=== PATIENT | male | born 1965 | race Caucasian/White ===

== ENCOUNTER 2020-04-20 11:56 | Emergency (ER) | payer OTHER ==
[~2020-04-20] VITALS: Ht 162.6 cm; Wt 64.0 kg
[2020-04-20] MEDS ORDERED: IV NORMAL SALINE 1000ML BAG 1,000 ML IV ONE (12:15)
--- NOTE | 2020-04-20 12:22 | PHYS DOC ---
Past Medical History Past Medical History: Diabetes-Type II, Hypertension General Adult EDM: Chief Complaint: NAUSEA/VOMITING/DIARRHA HPI: HPI: Patient is a 54 year old male with a history of diabetes type 2, hypertension, who presents today to be evaluated for nausea vomiting and diarrhea as well as generalized moderate intermittent cramping abdominal pain, symptoms began this morning while he was at a flea market. He states he had had some food before his symptoms began and believes he has food poisoning. Patient denies any hematemesis or melena. EMS reports his blood glucose was 32 when they found him. He was given glucose tablets. Glucose in 300s on arrival to the ED, EMS reports patient was found at [place] parking lot in his van. Review of Systems: Review of Systems: Constitutional: Denies fever or chills. [] Eyes: Denies change in visual acuity. [] HENT: Denies nasal congestion or sore throat. [] Respiratory: Denies cough or shortness of breath. [] Cardiovascular: Denies chest pain or edema. [] GI: Reports abdominal pain, nausea vomiting and diarrhea, denies bloody stools : Denies dysuria. [] Musculoskeletal: Denies back pain or joint pain. [] Integument: Denies rash. [] Neurologic: Denies headache, focal weakness or sensory changes. [] Endocrine: Reports hypoglycemia by EMS Lymphatic: Denies swollen glands. [] Psychiatric: Denies depression or anxiety. [] Heart Score: Risk Factors: Risk Factors: DM, Current or recent (<one month) smoker, HTN, HLP, family history of CAD, obesity. Risk Scores: Score 0 - 3: 2.5% MACE over next 6 weeks - Discharge Home Score 4 - 6: 20.3% MACE over next 6 weeks - Admit for Clinical Observation Score 7 - 10: 72.7% MACE over next 6 weeks - Early Invasive Strategies Current Medications: Current Medications Medications (Trade) Dose Ordered Sig/[facility] Start Time Stop Time Status Last Admin Dose Admin Famotidine (Pepcid Vial) 20 mg 1X ONCE 04/20/20 12:15 04/20/20 12:16 UNV Morphine Sulfate (Morphine Sulfate) 5 mg 1X ONCE 04/20/20 12:15 04/20/20 12:16 UNV Ondansetron HCl (Zofran) 4 mg 1X ONCE 04/20/20 12:15 8/2/20 12:16 UNV Sodium Chloride 1,000 ml @ 1,000 mls/hr 1X ONCE 04/20/20 12:15 04/20/20 13:14 UNV Physical Exam: PE: Constitutional: Well developed, well nourished, no acute distress, non-toxic appearance. [] HENT: Normocephalic, atraumatic, bilateral external ears normal, oropharynx moist, no oral exudates, nose normal. [] Eyes: PERRLA, EOMI, conjunctiva normal, no discharge. [] Neck: Normal range of motion, no tenderness, supple, no stridor. [] Cardiovascular:Heart rate regular rhythm, no murmur [] Lungs & Thorax: Bilateral breath sounds clear to auscultation [] Abdomen: Bowel sounds normal, soft, no tenderness, no masses, no pulsatile masses. [] Skin: Warm, dry, no erythema, no rash. [] Back: No tenderness, no CVA tenderness. [] Extremities: No tenderness, no cyanosis, no clubbing, ROM intact, no edema. [] Neurologic: Alert and oriented X 3, normal motor function, normal sensory function, no focal deficits noted. [] Psychologic: Affect normal, judgement normal, mood normal. [] Current Patient Data: Labs: Laboratory Tests Test 04/20/20 12:04 Glucose (Fingerstick) 386 mg/dL (70-99) H EKG: EKG: [] Radiology/Procedures: Radiology/Procedures: []PROCEDURE: CT ABD PELV W/ IV CONTRST ONLY CT abdomen and pelvis with contrast 04/20/2020. Reason for exam: Nausea, vomiting and diarrhea. CT images were obtained through the abdomen and pelvis using an infusion of 75 mL Omnipaque 300. No oral contrast was given. Exposure: One or more of the following individualized dose reduction techniques were utilized for this examination: 1. Automated exposure control 2. Adjustment of the mA and/or kV according to patient size 3. Use of iterative reconstruction technique. FINDINGS: The lung bases are clear. The liver and spleen are homogeneous in density and normal in configuration. Both kidneys enhance with contrast. No mass or obstruction is seen. The adrenal glands are not enlarged. There is a region in the pancreatic tail showing peripheral calcification. This measures about 1.4 cm. This is separate from the main splenic artery. No other pancreatic abnormality or inflammation is seen. There is no apparent retroperitoneal or mesenteric adenopathy. No abdominal soft tissue mass is seen. Evaluation of the GI tract is limited somewhat by lack of oral contrast and lack of distention. There could be mild wall thickening of the colon diffusely. There is a segment of bowel in the right abdomen showing internal calcific density. This appears to be blind ended arising from small bowel, and may indicate a Meckel's diverticulum. There is no appreciable adjacent inflammation. A normal appendix is seen arising from the cecum. Images through the pelvis show no abnormality of the distal ureters or bladder. The bladder was distended at the time of the exam. No pelvic or inguinal adenopathy is seen. There is no separate pelvic mass or other inflammatory process. IMPRESSION: There may be mild colitis. Evaluation is limited by lack of bowel distention and lack of oral contrast. There are findings suggesting possible Meckel's diverticulum in the right abdomen, but there is no evidence of obstruction or active inflammation related to this. There is a ring-shaped calcification in the pancreatic tail. Arterial branch aneurysm would be a consideration. Low-grade neoplasm or chronic pseudocyst are also possibilities. Follow-up CT in 6-12 months may be useful. Electronically signed by: Adilene Irizarry Jr., MD (04/20/2020 1:35 PM) [facility] DICTATED and SIGNED BY: ADILENE IRIZARRY Jr, MD DATE: 04/20/20 1097 Course & Med Decision Making: Course & Med Decision Making Pertinent Labs and Imaging studies reviewed. (See chart for details) This is a 54-year-old male patient who presents to the ED today to be evaluated for nausea vomiting and diarrhea that began today after eating some food at a flea market. Patient arrives in the ED with blood glucose in the low 386. His blood glucose was 32 when EMS got him and had been given glucose tablets. CBC with a normal WBC, CMP with no acute findings. CT of the abdomen and pelvic was noted for colitis. Other CT results were discussed with patient as noted on the CAT scan. Patient was hydrated in the ED. Discharged on Cipro Flagyl dicyclomine and Zofran. Return precautions provided. Dragjohanny Disclaimer: Marian Disclaimer: This electronic medical record was generated, in whole or in part, using a voice recognition dictation system. Departure Departure Impression: Primary Impression: Colitis Disposition: 01 HOME, SELF-CARE Condition: STABLE Referrals: JOIE TRIVEDI MD follow up in one week Patient Instructions: Colitis Additional Instructions: You have colitis. Please complete the prescribed antibiotics. Please push fluids and maintain good hand hygiene. Please follow up with your doctor next week or the provided doctor Scripts Dicyclomine Hcl (DICYCLOMINE HCL) 20 Mg Tablet 1 TAB PO TID, #30 TAB 1 Refill Prov: JUANITA CORDOVA APRN 04/20/20 Ondansetron Hcl (ZOFRAN) 4 Mg Tablet 1 TAB PO Q6HRS, #20 TAB Prov: JUANITA CORDOVA APRN 8/2/20 Metronidazole (FLAGYL) 500 Mg Tablet 500 MG PO TID, #30 TAB Prov: JUANITA CORDOVA APRN 8/20 Ciprofloxacin Hcl (CIPRO) 500 Mg Tablet 1 TAB PO BID for 10 Days, #20 TAB 0 Refills Prov: JUANITA CORDOVA APRN 04/20/20 Justicifation of Admission Dx: Justifications for Admission: Justification of Admission Dx: N/A JUANITA CORDOVA APRN Apr 20, 2020 12:22
[2020-04-20 12:39] LABS: BASO # 0.1 x10^3/uL (0.0-0.2); BASO % 1 % (0-3); EOS # 0.1 x10^3/uL (0.0-0.7); EOS % 1 % (0-3); HEMATOCRIT 43.2 % (39.0-53.0); HEMOGLOBIN 14.3 g/dL (13.0-17.5); LYMPH # 1.2 x10^3/uL (1.0-4.8); LYMPH % 12 % (24-48); MEAN CORPUSCULAR HEMOGLOBIN 29 pg (25-35); MEAN CORPUSCULAR HGB CONC 33 g/dL (31-37); MEAN CORPUSCULAR VOLUME 88 fL (79-100); MONO # 0.3 x10^3/uL (0.0-1.1); MONO % 3 % (0-9); NEUT # 8.7 x10^3/uL (1.8-7.7); NEUT % 84 % (31-73); PLATELET COUNT 181 x10^3/uL (140-400); RED BLOOD COUNT 4.94 x10^6/uL (4.30-5.70); RED CELL DISTRIBUTION WIDTH 13.6 % (11.5-14.5); WHITE BLOOD COUNT 10.3 x10^3/uL (4.0-11.0)
[2020-04-20] MEDS ORDERED: MORPHINE SULFATE 10 MG/ML VIAL. IV ONE (12:45)
[2020-04-20] MEDS ORDERED: FAMOTIDINE 20 MG/2 ML VIAL IVP ONE (12:45)
[2020-04-20] MEDS ORDERED: ONDANSETRON PF 4 MG/2 ML VIAL. IVP ONE (12:45)
[2020-04-20 12:50] LABS: CALCIUM 9.5 mg/dL (8.5-10.1); CREATININE 1.1 mg/dL (0.7-1.3); GFR 69.2; POTASSIUM 3.8 mmol/L (3.5-5.1)
[2020-04-20 12:56] LABS: ALBUMIN 4.3 g/dL (3.4-5.0); MAGNESIUM 2.1 mg/dL (1.8-2.4); TOTAL BILIRUBIN 0.9 mg/dL (0.2-1.0); TOTAL PROTEIN 8.4 g/dL (6.4-8.2)
[2020-04-20] MEDS ORDERED: IOHEXOL 300 MG/ML 100ML VIAL. IV ONE (13:30)
[2020-04-20] MEDS ORDERED: CONTRAST GIVEN. MC PRN (13:30)
--- NOTE | 2020-04-20 13:38 | RAD ---
CT abdomen and pelvis with contrast 04/20/2020. Reason for exam: Nausea, vomiting and diarrhea. CT images were obtained through the abdomen and pelvis using an infusion of 75 mL Omnipaque 300. No oral contrast was given. Exposure: One or more of the following individualized dose reduction techniques were utilized for this examination: 1. Automated exposure control 2. Adjustment of the mA and/or kV according to patient size 3. Use of iterative reconstruction technique. FINDINGS: The lung bases are clear. The liver and spleen are homogeneous in density and normal in configuration. Both kidneys enhance with contrast. No mass or obstruction is seen. The adrenal glands are not enlarged. There is a region in the pancreatic tail showing peripheral calcification. This measures about 1.4 cm. This is separate from the main splenic artery. No other pancreatic abnormality or inflammation is seen. There is no apparent retroperitoneal or mesenteric adenopathy. No abdominal soft tissue mass is seen. Evaluation of the GI tract is limited somewhat by lack of oral contrast and lack of distention. There could be mild wall thickening of the colon diffusely. There is a segment of bowel in the right abdomen showing internal calcific density. This appears to be blind ended arising from small bowel, and may indicate a Meckel's diverticulum. There is no appreciable adjacent inflammation. A normal appendix is seen arising from the cecum. Images through the pelvis show no abnormality of the distal ureters or bladder. The bladder was distended at the time of the exam. No pelvic or inguinal adenopathy is seen. There is no separate pelvic mass or other inflammatory process. IMPRESSION: There may be mild colitis. Evaluation is limited by lack of bowel distention and lack of oral contrast. There are findings suggesting possible Meckel's diverticulum in the right abdomen, but there is no evidence of obstruction or active inflammation related to this. There is a ring-shaped calcification in the pancreatic tail. Arterial branch aneurysm would be a consideration. Low-grade neoplasm or chronic pseudocyst are also possibilities. Follow-up CT in 6-12 months may be useful. Electronically signed by: Amando Sewell Jr., MD (04/20/2020 1:35 PM) [facility]
[2020-04-20] MEDS ORDERED: CIPROFLOXACIN 400MG PREMIX 200 ML IV ONE (15:30)
[2020-04-20 15:32] VITALS: BP 143/89
[2020-04-20] MEDS ORDERED: METR500T PO (15:55)
[2020-04-20] MEDS ORDERED: ONDA4TAB7 PO (15:55)
[2020-04-20] MEDS ORDERED: CIPR500T94 PO (15:55)
[2020-04-20] MEDS ORDERED: DICY20TA3 PO (15:57)
== END 2020-04-20 16:09 | disposition home or self-care (01) ==
LOC: ER 11:56
DX: K52.9 Noninfective gastroenteritis and colitis, unspecified (principal); R11.2 Nausea with vomiting, unspecified; R19.7 Diarrhea, unspecified; E11.9 Type 2 diabetes mellitus without complications; I10 Essential (primary) hypertension
CPT/HCPCS: 36415; 74177; 80053; 82962; 83690; 83735; 85025; 87493; 96361; 96374; 96375; 99285; G0480; J2270; J2405; J3490; J7030; Q9967

== ENCOUNTER 2021-10-07 15:16 | Emergency (ER) | payer OTHER ==
[~2021-10-07] VITALS: Ht 162.6 cm; Wt 61.8 kg
[~2021-10-07 15:16] MED LIST: ASPI325T11 PO; ATOR40TA59 PO; CIPR500T94 PO; DICY20TA PO; GLIP2.5T4 PO; METF500T16 PO; METR500T PO; ONDA4TAB7 PO
[2021-10-07] MEDS ORDERED: IV NORMAL SALINE 1000ML BAG 1,000 ML IV SCH (19:30)
[2021-10-07] MEDS ORDERED: VANCOMYCIN PER PHARMACY MC ONE (19:30)
[2021-10-07] MEDS ORDERED: PIPERACILLIN/TAZOBACTAM 4.5 GM in IV NORMAL SALINE 100ML 100 ML IV ONE (19:30)
[2021-10-07] MEDS ORDERED: VANCOMYCIN 1.5 GM in IV NORMAL SALINE 500ML BAG 500 ML IV ONE (19:30)
[2021-10-07 19:31] LABS: BASO % 1 % (0-3); EOS # 0.1 x10^3/uL (0.0-0.7); EOS % 2 % (0-3); HEMATOCRIT 25.2 % (39.0-53.0); HEMOGLOBIN 8.1 g/dL (13.0-17.5); LYMPH # 2.4 x10^3/uL (1.0-4.8); LYMPH % 33 % (24-48); MEAN CORPUSCULAR HEMOGLOBIN 27 pg (25-35); MEAN CORPUSCULAR HGB CONC 32 g/dL (31-37); MEAN CORPUSCULAR VOLUME 85 fL (79-100); MONO # 0.6 x10^3/uL (0.0-1.1); MONO % 8 % (0-9); NEUT % 56 % (31-73); PLATELET COUNT 257 x10^3/uL (140-400); RED BLOOD COUNT 2.97 x10^6/uL (4.30-5.70); RED CELL DISTRIBUTION WIDTH 15.1 % (11.5-14.5); WHITE BLOOD COUNT 7.2 x10^3/uL (4.0-11.0)
[2021-10-07 19:41] LABS: CALCIUM 8.4 mg/dL (8.5-10.1); CREATININE 0.9 mg/dL (0.7-1.3); POTASSIUM 4.1 mmol/L (3.5-5.1)
[2021-10-07 19:47] LABS: ALBUMIN 2.6 g/dL (3.4-5.0); ALBUMIN/GLOBULIN RATIO 0.5 (1.0-1.7); TOTAL BILIRUBIN 0.2 mg/dL (0.2-1.0); TOTAL PROTEIN 8.3 g/dL (6.4-8.2)
--- NOTE | 2021-10-07 20:49 | RAD ---
EXAMINATION: Right ankle and right foot radiographs. VIEWS: 3 views of the right ankle and 3 views of the right foot. COMPARISON: None. INDICATION:55 years, Male, cellulitis. FINDINGS: No acute fracture, dislocation or subluxation. Ankle mortise and talar dome are intact. No bone erosi on or periosteal reaction. Diffuse soft tissue swelling about the ankle and foot. Moderate amount of ankle joint effusion. IMPRESSION: Diffuse soft tissue swelling about the ankle and foot, without underlying osseous abnormality. EXAMINATION: US DPLX VENOUS EXTREMITY LOWER RT INDICATION: Cellulitis, evaluate for deep venous thrombosis. COMPARISONS: None TECHNIQUE: Grayscale, color and spectral Doppler evaluation of the Right lower extremity deep venous system(s) was performed. FINDINGS: Right common femoral, femoral and popliteal veins are normally compressible and demonstrate normally directed and appropriately phasic flow with augmentation. Normal flow is present within the saphenofemoral junctions and deep femoral veins in the proximal thi gh and the posterior tibial and peroneal veins in the proximal calf. Incidentally noted is prominent benign-appearing right inguinal lymph nodes with fatty hilum. IMPRESSION: 1. No evidence of right lower extremity deep venous thrombosis. 2. Prominent benign-appearing right inguinal lymph nodes, likely reactive. Electronically signed by: Steve Mayen MD (10/07/2021 8:46 PM) [facility]
[2021-10-07 22:11] VITALS: BP 181/75
--- NOTE | 2021-10-07 22:28 | PHYS DOC ---
Past Medical History Past Medical History: Diabetes-Type II, Hypertension Past Surgical History: No Surgical History Smoking Status: Former Smoker Alcohol Use: None General Adult EDM: Chief Complaint: CELLULITIS HPI: HPI: Patient is a 55 year old male with history of diabetes type 2, hypertension, who presents to the ED today complaining of cellulitis to the ankle, symptoms of been going on for 3 weeks. Patient denies any trauma. He states he was [facility] at the onset of his symptoms, he states he was treated with IV antibiotics and discharged with oral antibiotics. He states they discharged him quickly from the [facility] because "I have too much money". He states the [facility] are willing to admit patients who are alcoholic and drug addicts instead of people with money. He states the [facility] does not like people with too much money. He states he followed up with his own PCP today and they told him he is septic and needs to come to the emergency room. Review of Systems: Review of Systems: Constitutional: Denies fever or chills. [] Eyes: Denies change in visual acuity. [] HENT: Denies nasal congestion or sore throat. [] Respiratory: Denies cough or shortness of breath. [] Cardiovascular: Denies chest pain or edema. [] GI: Denies abdominal pain, nausea, vomiting, bloody stools or diarrhea. [] : Denies dysuria. [] Musculoskeletal: Denies back pain or joint pain. [] Integument: Reports right ankle cellulitis Neurologic: Denies headache, focal weakness or sensory changes. [] Psychiatric: Denies depression or anxiety. [] Heart Score: C/O Chest Pain: N/A Risk Factors: Risk Factors: DM, Current or recent (<one month) smoker, HTN, HLP, family history of CAD, obesity. Risk Scores: Score 0 - 3: 2.5% MACE over next 6 weeks - Discharge Home Score 4 - 6: 20.3% MACE over next 6 weeks - Admit for Clinical Observation Score 7 - 10: 72.7% MACE over next 6 weeks - Early Invasive Strategies Current Medications: Current Medications Medications (Trade) Dose Ordered Sig/[facility] Start Time Stop Time Status Last Admin Dose Admin Piperacillin Sod/ Tazobactam Sod 4.5 gm/Sodium Chloride 100 ml @ 200 mls/hr 1X ONCE 10/07/21 19:30 10/07/21 19:59 DC 10/07/21 19:45 200 MLS/HR Sodium Chloride 1,000 ml @ 1,770 mls/hr Q34M 10/07/21 19:30 10/07/21 20:30 DC 10/07/21 19:42 1,770 MLS/HR Vancomycin HCl (Vanco Per Pharmacy) 1 each 1X ONCE 10/07/21 19:30 10/07/21 19:31 DC Vancomycin HCl 1.5 gm/Sodium Chloride 500 ml @ 250 mls/hr 1X ONCE 10/07/21 19:30 10/07/21 21:29 DC 10/07/21 20:28 250 MLS/HR Allergies: Allergies: Allergies Coded Allergies Type Severity Reaction Last Updated Verified No Known Drug Allergies 10/07/21 No Physical Exam: PE: Constitutional: Well developed, well nourished, no acute distress, non-toxic appearance. [] HENT: Normocephalic, atraumatic, bilateral external ears normal, oropharynx moist, no oral exudates, nose normal. [] Eyes: PERRLA, EOMI, conjunctiva normal, no discharge. [] Neck: Normal range of motion, no tenderness, supple, no stridor. [] Cardiovascular:Heart rate regular rhythm, no murmur [] Lungs & Thorax: Bilateral breath sounds clear to auscultation [] Abdomen: Bowel sounds normal, soft, no tenderness, no masses, no pulsatile masses. [] Skin: See extremity Back: No tenderness, no CVA tenderness. [] Extremities: Right lower extremity with no obvious deformity, plus once soft ti ssue swelling noted on the right foot and ankle. There is trace cellulitis on the medial ankle and lateral ankle, there is marking on right medial ankle and right lateral ankle showing how far the cellulitis had spread, looking at the marking there is tremendous improvement of infection. Full range of motion to the right foot, right ankle, right toes. +2 right pedal pulse. Cap refill less than 2 seconds in right lower extremity. Neurologic: Alert and oriented X 3, normal motor function, normal sensory function, no focal deficits noted. [] Psychologic: Affect normal, judgement normal, mood normal. [] Current Patient Data: Labs: Laboratory Tests Test 10/07/21 18:50 White Blood Count 7.2 x10^3/uL (4.0-11.0) Red Blood Count 2.97 x10^6/uL (4.30-5.70) L Hemoglobin 8.1 g/dL (13.0-17.5) L Hematocrit 25.2 % (39.0-53.0) L Mean Corpuscular Volume 85 fL (79-100) Mean Corpuscular Hemoglobin 27 pg (25-35) Mean Corpuscular Hemoglobin Concent 32 g/dL (31-37) Red Cell Distribution Width 15.1 % (11.5-14.5) H Platelet Count 257 x10^3/uL (140-400) Neutrophils (%) (Auto) 56 % (31-73) Lymphocytes (%) (Auto) 33 % (24-48) Monocytes (%) (Auto) 8 % (0-9) Eosinophils (%) (Auto) 2 % (0-3) Basophils (%) (Auto) 1 % (0-3) Neutrophils # (Auto) 4.0 x10^3/uL (1.8-7.7) Lymphocytes # (Auto) 2.4 x10^3/uL (1.0-4.8) Monocytes # (Auto) 0.6 x10^3/uL (0.0-1.1) Eosinophils # (Auto) 0.1 x10^3/uL (0.0-0.7) Basophils # (Auto) 0.0 x10^3/uL (0.0-0.2) Sodium Level 131 mmol/L (136-145) L Potassium Level 4.1 mmol/L (3.5-5.1) Chloride Level 96 mmol/L (98-107) L Carbon Dioxide Level 28 mmol/L (21-32) Anion Gap 7 (6-14) Blood Urea Nitrogen 20 mg/dL (8-26) Creatinine 0.9 mg/dL (0.7-1.3) Estimated GFR (Cockcroft-Gault) 87.0 BUN/Creatinine Ratio 22 (6-20) H Glucose Level 188 mg/dL (70-99) H Lactic Acid Level 2.0 mmol/L (0.4-2.0) Calcium Level 8.4 mg/dL (8.5-10.1) L Total Bilirubin 0.2 mg/dL (0.2-1.0) Aspartate Amino Transferase (AST) 8 U/L (15-37) L Alanine Aminotransferase (ALT) 12 U/L (16-63) L Alkaline Phosphatase 79 U/L (46-116) Total Protein 8.3 g/dL (6.4-8.2) H Albumin 2.6 g/dL (3.4-5.0) L Albumin/Globulin Ratio 0.5 (1.0-1.7) L Procalcitonin < 0.10 ng/mL (0.00-0.10) Laboratory Tests 10/07/21 18:50 Laboratory Tests 10/07/21 18:50 Vital Signs: Vital Signs Date Time Temp Pulse Resp B/P (MAP) Pulse Ox O2 Delivery O2 Flow Rate FiO2 10/07/21 19:11 80 15 161/70 (100) 100 Room Air 10/07/21 15:55 97.8 97.8 EKG: EKG: [] Radiology/Procedures: Radiology/Procedures: []PROCEDURE: VENOUS LOWER EXTREMITY RIGHT EXAMINATION: Right ankle and right foot radiographs. VIEWS: 3 views of the right ankle and 3 views of the right foot. COMPARISON: None. INDICATION:55 years, Male, cellulitis. FINDINGS: No acute fracture, dislocation or subluxation. Ankle mortise and talar dome are intact. No bone erosion or periosteal reaction. Diffuse soft tissue swelling about the ankle and foot. Moderate amount of ankle joint effusion. IMPRESSION: Diffuse soft tissue swelling about the ankle and foot, without underlying osseous abnormality. ----- EXAMINATION: US DPLX VENOUS EXTREMITY LOWER RT INDICATION: Cellulitis, evaluate for deep venous thrombosis. COMPARISONS: None TECHNIQUE: Grayscale, color and spectral Doppler evaluation of the Right lower extremity deep venous system(s) was performed. FINDINGS: Right common femoral, femoral and popliteal veins are normally compressible and demonstrate normally directed and appropriately phasic flow with augmentation. Normal flow is present within the saphenofemoral junctions and deep femoral veins in the proximal thigh and the posterior tibial and peroneal veins in the proximal calf. Incidentally noted is prominent benign-appearing right inguinal lymph nodes with fatty hilum. IMPRESSION: 1. No evidence of right lower extremity deep venous thrombosis. 2. Prominent benign-appearing right inguinal lymph nodes, likely reactive. Electronically signed by: Asaf Mayen MD (10/07/2021 8:46 PM) [facility] DICTATED and SIGNED BY: ASAF MAYEN MD DATE: 10/07/[id number] 0 Course & Med Decision Making: Course & Med Decision Making Pertinent Labs and Imaging studies reviewed. (See chart for details) This is a 55-year-old male patient presented to the ED today from home complaining of cellulitis of the right ankle that he has had for 3 weeks. Pat alverto reports he was admitted at the [facility] 3 weeks ago and was treated with IV antibiotics and discharged on oral antibiotics. He states today he saw the PCP and they told him he is septic and needs to come back to the emergency room. Patient arrives in the ED vitals documented temperature 97.8, heart rate 96, blood pressure initially was documented as 104/34 which looks inaccurate. Repeat blood pressure is 131/61, respiration 18, O2 sats 98% on room air CBC with a normal WBC, hemoglobin 8.1 with hematocrit of 25.2, history of chronic anemia. CMP with a glucose of 188, anion gap is normal, CO2 is normal, history of diabetes. Lactic is normal. Right foot x-rays, right ankle x-rays were negative for any acute findings, venous Doppler of the right lower extremity is negative. This patient does not have the typical presentation of sepsis. I discharged him to home. Recommended he continues following up with his own PCP and also provided him infectious disease doctor. Marian Disclaimer: Marian Disclaimer: This electronic medical record was generated, in whole or in part, using a voice recognition dictation system. Departure Departure Impression: Primary Impression: Cellulitis of right ankle Additional Impression: Hyperglycemia Disposition: HOME / SELF CARE / HOMELESS Condition: STABLE Referrals: VALDEZ OTERO MD (PCP) follow up next week FRANCHESKA CARBONE MD follow up in 1-2 weeks Patient Instructions: Cellulitis, [id number] Additional Instructions: You were evaluated in the emergency room. Your work-up in the emergency room did not indicate sepsis. We highly recommend you follow-up with your primary care doctor as well as the provided infectious disease doctor. JUANITA CORDOVA FURNITURE REPAIRER Oct 07, 2021 22:28
== END 2021-10-07 22:50 | disposition home or self-care (01) ==
LOC: ER 15:16
DX: L03.115 Cellulitis of right lower limb (principal); E11.9 Type 2 diabetes mellitus without complications; I10 Essential (primary) hypertension; Z87.891 Personal history of nicotine dependence
CPT/HCPCS: 36415; 73610; 73630; 80053; 83605; 84145; 85025; 87040; 93971; 96365; 96366; 96367; 99285; J2543; J3370; J7030; J7040